=== PATIENT | female | born 1995 | race Caucasian/White ===

== ENCOUNTER 2023-08-23 10:16 | Emergency (ER) | payer OTHER | END 2023-08-23 10:53 | disposition home or self-care (01) | LOC: MADERS 10:16 | DX: K08.89 Other specified disorders of teeth and supporting structures (principal); F17.210 Nicotine dependence, cigarettes, uncomplicated | CPT/HCPCS: 99282 ==

== ENCOUNTER 2024-10-10 12:27 | Emergency (ER) | payer OTHER | END 2024-10-10 13:29 | disposition home or self-care (01) | LOC: MADERS 12:27 | DX: J02.0 Streptococcal pharyngitis (principal); F17.210 Nicotine dependence, cigarettes, uncomplicated | CPT/HCPCS: 99283 ==

== ENCOUNTER 2024-12-19 16:47 | Emergency (ER) | payer MEDICAID, OTHER ==
[2024-12-19] MEDS ORDERED: methylPREDNISolone Acetate 80 mg (1 mL) VIAL ONE (17:43)
[2024-12-19] MEDS ORDERED: Naproxen 500 MG TAB ONE (17:43)
== END 2024-12-19 18:14 | disposition home or self-care (01) ==
LOC: MADERS 16:47
DX: B34.9 Viral infection, unspecified (principal); J06.9 Acute upper respiratory infection, unspecified; R03.0 Elevated blood-pressure reading, without diagnosis of hypertension; F17.210 Nicotine dependence, cigarettes, uncomplicated
CPT/HCPCS: 87428; 96372; J1040